=== PATIENT | female | born 1990 | race Caucasian/White ===

== ENCOUNTER 2023-04-08 12:58 | Outpatient (CLI) | payer MEDICAID, SELFPAY ==
--- NOTE | 2023-04-08 12:45 | RT.EKG_ITS ---
APPROVED REPORT Exam: Resting ECG Reason for Exam: pericardial effusion Patient Location: O HR:69 bpm ECG Measurements Heart Rate 69 AXIS MN 107 P 20 QRSd 80 QRS 28 QT 368 T 7 QTc 395 Conclusion Sinus rhythm...normal P axis, V-rate 50- 99 Short MN interval...MN <110mS Borderline T abnormalities, anterior leads...T flat or neg, V2-V4 Baseline wander in lead(s) V1,V2 I have reviewed and interpreted ECG and agree with software generated interpretation.
== END 2023-04-08 12:59 | disposition home or self-care (01) ==
LOC: DI.CARD 12:59
PROVIDERS: Visit Provider Internal Medicine Interventional Cardiology
DX: I31.39 Other pericardial effusion (noninflammatory) (principal)
CPT/HCPCS: 93010

== ENCOUNTER → 2023-05-06 00:55 | Outpatient (CLI) | payer MEDICAID, SELFPAY ==
--- NOTE | 2023-05-06 12:30 | DI.US_ITS ---
APPROVED REPORT EXAM: Comprehensive 2D, Doppler, and color-flow Echocardiogram Patient Location: Out-Patient Director Of Surgery: Edgar Patiño RDCS ([facility]) Indications: Pericardial effusion, CHF Conclusion Normal chamber sizes Normal LV function, EF 60-65%. Normal RV function. Anatomically normal valves. Mild TR, no phtn Trace pericardial effusion, within normal limits. Wall motion Left Ventricle The left ventricle is normal size. The left ventricular systolic function is normal. The left ventric ular ejection fraction is within the normal range. There is normal left ventricular wall thickness. T here is normal LV segmental wall motion. There is no ventricular septal defect visualized. LVEF is 60 %. Right Ventricle The right ventricle is normal size. The right ventricular systolic function is normal. Atria The left atrium size is normal. The right atrium size is normal. The interatrial septum is intact wit h no evidence for an atrial septal defect. Aortic Valve The aortic valve is normal in structure. Aortic valve is trileaflet. There is no aortic valvular sten osis. No aortic regurgitation is present. Mitral Valve The mitral valve is normal in structure. No evidence of mitral valve stenosis. Mild mitral regurgitat ion. Tricuspid Valve The tricuspid valve is normal in structure. There is no tricuspid valve stenosis. Trace to mild tricu spid regurgitation. Unable to assess PA pressure. Pulmonic Valve The pulmonary valve is normal in structure. There is no pulmonic valvular stenosis. Great Vessels The aortic root is normal in size. Ascending aorta is not well visualized. IVC is normal in size and collapses >50% with inspiration. Pericardium There is no pericardial effusion. 2D Dimensions IVSD d PLAX 0.52 cm F: 0.6-1.0 Ao Root d 2.68 cm F: 2.7 - 3.3 LVPW d PLAX 0.53 cm F: 0.6 - 1.0 LVID d PLAX 4.91 cm F: 3.8 - 5.2 LVDs 3.35 cm F: 2.2 - 3.5 LV EF Teichholz 59.7 % FS 31.83 % LV EDV (Teich) 113.6 mL LV ESV (Teich) 45.8 mL Stroke Vol Index (Teich) 46.15 M-Mode TAPSE 2.01 cm (M/F) >1.7 Auto EF LV EDV A4C 84.2 mL LV EDV A2C 94.0 mL LV EDV BP 89.6 mL LV ESV A4C 34.2 mL LV ESV A2C 36.3 mL LV ESV BP 35.3 mL LVEF(%) A4C 59.3 % LVEF(%) A2C 61.4 % LVEF(%) BP 60.6 % LV SV A4C 49.9 ml LV SV A2C 57.7 ml LV SV BP 54.2 ml LV CO A4C 2.9 L/min LV CO A2C 3.4 L/min LV CO BP 3.2 L/min HR A4C 58.07 BPM HR A2C 59.70 BPM LV EDV Index (BP) LA Volume LA Length A4C 2.8 cm LA Length A2C 4.1 cm LA Area A4C s 5.21 cm2 LA Area A2C s 9.83 cm2 LA Vol A4C A-L 8.27 mL LA Vol A2C A-L 19.88 mL LA Vol Biplane A-L 15.6 mL LA Vol/BSA A4C A-L LA Vol/BSA A2C A-L LA Vol/BSA BP A-L 10.6 mL/m2 LA Vol A4C MOD 8.0 mL LA Vol A2C MOD 17.5 mL LA Vol BP MOD 14.0 mL RA Volume RA Area A4C 6.2 cm2 RA ESV A4C (A-L) 9.1mL RA Vol/BSA A4C A-L RA Length A4C 3.5 cm RA ESV A4C (MOD) 8.4mL LV Diastology MV E' medial 0.080 (>0.07 m/s) MV E Vmax 0.84 (0.4-1.3 m/s) MV E/E' MED 10.50 (<14) MV A Vmax 0.80 (0.4-1.3 m/s) MV E' lateral 0.166 (>0.1 m/s) E/A Ratio 1.0 MV E/E' LAT 5.07 (<14) MV E' Average 0.123 m/s MV E/E'(average) 6.84 Aortic Valve AoV Vmax 1.37 m/s LVOT Vmax 0.88 m/s AoV Peak Grad 7.5 mmHg LVOT Peak Grad 3.1 mmHg AoV Area (Vmax) 1.83 cm2 LVOT VTI 0.198 m AoV VTI 0.313 m LVOT Mean Grad 1.8 mmHg AoV Mean Herb. 0.96 m/s LVOT SV 56.43 mL AoV Mean Grad 4.2 mmHg LVOT Diam s 1.90 cm AoV Area (VTI) 1.80 cm2 Velocity Ratio 0.64 Mitral Valve MV DT 195 (160-240 msec) Pulmonary Valve PV Vmax 0.74 (0.5-1.5 m/s) RVOT Vmax 0.59 m/s PV Peak Grad 2.2 mmHg RVOT Peak Gr. 1.4 mmHg PV Mean Herb 0.52 m/s RVOT VTI 0.145 m PV Mean Grad 1.2 mmHg RVOT Mean Gr. 0.8 mmHg
== END ==
PROVIDERS: Visit Provider Internal Medicine Interventional Cardiology
DX: I50.9 Heart failure, unspecified (principal)
CPT/HCPCS: 93306

== ENCOUNTER 2024-02-02 18:20 | Emergency (ER) | payer OTHER, SELFPAY ==
[2024-02-02 18:21] VITALS: BP 165/102; PULSE 118; RESP 18; TEMP 36.3; O2SAT 99
[2024-02-02] MEDS: Ondansetron O.D.T. 4 MG TABEF PO (18:40)
[2024-02-02] MEDS: Dexamethasone 10 MG/ML VIAL IVP (19:00)
[2024-02-02] MEDS: ACETAMINOPHEN 1,000 MG/100 ML BAG 400 MG IVPB (19:18)
[2024-02-02] MEDS: Prochlorperazine 10 MG/2 ML VIAL IVP (19:20)
[2024-02-02] MEDS: Normal Saline 500 ML IV (19:21)
[2024-02-02 19:32] LABS: Abs Immature Grans 0.01 10^3/uL (0.0-0.06); Absolute Basophil Count 0.03 10^3/uL (0.0-0.2); Absolute Eosinophil Count 0.06 10^3/uL (0.0-0.7); Absolute Lymphocyte Count 1.89 10^3/uL (1.2-3.4); Absolute Monocyte Count 0.38 10^3/uL (0.1-0.8); Absolute Neutrophil Count 3.56 10^3/uL (1.2-6.7); Basophils % 0.5 %; HCT 43.4 % (36.0-46.0); HGB 14.5 g/dL (11.2-15.7); Immature Grans % 0.2 %; Lymphocytes % 31.9 %; MCH 31.2 pg (27.0-33.0); MCHC 33.4 % (32.0-36.0); MCV 93 fL (80-95); Monocytes % 6.4 %; Platelet Count 125 10^3/uL (130-400); RBC 4.65 10^6/uL (3.93-5.22); RDW 12.5 % (11.7-14.6); WBC 5.93 10^3/uL (4.4-10.8)
--- NOTE | 2024-02-02 19:35 | DI.CT_ITS ---
Exam(s) CT HEAD WO EXAM: CT HEAD WO CLINICAL HISTORY: terrible headache. TECHNIQUE: Imaging Protocol: Axial computed tomography images with coronal and sagittal reformatted images were created and reviewed COMPARISON: No exams were available for comparison FINDINGS: There are no skull fractures. There is no fluid in the visualized paranasal sinuses. There is no evidence of intracranial hemorrhage, mass effect, or shift of midline structures. There are no extra-axial fluid collections. The ventricles are not enlarged or shifted and there is no blo od within the ventricular system nor within the basal cisterns. IMPRESSION: No acute intracranial findings on this noninfused CT scan of the brain. Called by myself to ER provider 02/02/2024 at 7:38 p.m. RADIATION DOSE DELIVERED: 851.43mGy.cm Total DLP DATA REPOSITORY: All CT scans at this facility are submitted to the National Radiology Data Registry (NRDR) Dose Index Registry (DIR) with the [employer] (ACR). RADIATION OPTIMIZATION: All CT scans at this facility use at least one of these dose optimization te chniques: automated exposure control; mA and/or kV adjustment per patient size (includes targeted exa ms where dose is matched to clinical indication); or iterative reconstruction.
[2024-02-02 19:37] VITALS: BP 134/84; PULSE 58; RESP 14; TEMP 36.9; O2SAT 100
[2024-02-02 19:43] LABS: ALT 26 U/L (14-59); AST 12 U/L (15-37); Albumin 3.9 g/dL (3.4-5.0); Alkaline Phosphatase 42 U/L (46-116); Anion Gap 10.9 mmol/L (3-11); BUN 10 mg/dL (7-18); Bilirubin, Total 0.49 mg/dL (0.2-1.0); CO2 27.1 mmol/L (21.0-32.0); Calcium 9.3 mg/dL (8.5-10.1); Chloride 105 mmol/L (98-107); Estimated GFR 77.24 (mL/min/1.73m2); Glucose 94 mg/dL (74-106); Potassium 3.6 mmol/L (3.5-5.1); Sodium 143 mmol/L (136-145)
[2024-02-02] MEDS: Ketorolac 15 MG/ML VIAL 7.5 MG IVP (19:43)
[2024-02-02] MEDS: Ondansetron O.D.T. 4 MG TABEF, 3 TABS/BTL PO (20:31)
[2024-02-02] MEDS: Prochlorperazine 10 MG TAB PO (20:31)
[2024-02-02 20:32] VITALS: BP 111/65; PULSE 68; RESP 16; TEMP 36.9; O2SAT 100
--- NOTE | 2024-02-02 21:58 | W.ED.GENAD ---
Discharge Plan Disposition Patient Disposition: Home Discharge Details Clinical Impression: Headache Primary Care Provider: Jun Carrillo ED Provider: Lisseth Burton Home Meds and New Rx's Prescriptions: New ondansetron 4 mg tablet,disintegrating 4 mg PO TID PRNQty: 10 0RF prochlorperazine maleate [Compazine] 10 mg tablet 10 mg PO Q6H PRNQty: 10 0RF Continued Nurtec ODT 75 mg tablet,disintegrating 75 mg PO ONCE PRN (Reason: migraine headache) Qty: 10 6RF Patient Comments: Insurance has not authorized yet. Rx Instructions: as a single dose norethindrone ac-eth estradiol 1.5-30 mg-mcg tablet 1 tab PO DAILY Qty: 63 5RF sumatriptan succinate [Imitrex] 25 mg tablet See Rx Instructions .ROUTE .COMPLEX Rx Instructions: take 1 tab at onset of headache; if no relief may repeat 1 tab after at least 2 hrs; max = 4 tabs/24 hr ibuprofen [IBU] 800 mg tablet 800 mg PO Q8H acetaminophen [Tylenol Extra Strength] 500 mg tablet 1,000 mg PO Q6H PRN Discharge Instructions Instructions: Headache, Adult ED Additional Instructions: Follow-up with neurology, and giving you a referral, I am giving you a prescription for Compazine which you may take as needed for headache, and the Zofran may help with nausea and vomiting, Compazine tends to help more with headaches, so you may use the Zofran for persistent nausea despite taking the Compazine Take ibuprofen and Tylenol as needed for discomfort please return earlier should you have new, worsening, or persistent symptoms Referrals: Jun Carrillo DO [Primary Care Provider] - Tiffanie Rizo MD [ [facility] STAFF PHYSICIAN] - 1 day HPI General Date/Time Provider Initiated Documentation: 02/02/24 18:33. HPI Narrative: This 33-year-old female with history of migraine headaches presents with report of atypical headache that started at 12 pm today. pt states she took her sumatriptan, ibuprofen, and tylenol with persistent and worsening CASTRO. Denies thunderclap onset of pain. denies fever or stiff neck. denies chance of , chest pain, abdominal pain, shortness of breath. Reports phonophobia and photophobia. Denies carbon monoxide exposure. Related Data Home Medications ?Medication ?Instructions ?Recorded ?Confirmed norethindrone acetate 1.5 1 tab PO DAILY #63 tabs 04/08/23 02/02/24 mg-ethinyl estradiol 30 mcg tablet rimegepant 75 mg disintegrating 75 mg PO ONCE PRN migraine 01/20/24 02/02/24 tablet (Nurtec ODT) headache #10 tabs acetaminophen 500 mg tablet 1,000 mg PO Q6H PRN 02/02/24 02/02/24 (Tylenol Extra Strength) ibuprofen 800 mg tablet (IBU) 800 mg PO Q8H 02/02/24 02/02/24 ondansetron 4 mg disintegrating 4 mg PO TID PRN #10 tabs 02/02/24 tablet prochlorperazine maleate 10 mg 10 mg PO Q6H PRN #10 tabs 02/02/24 tablet (Compazine) sumatriptan succinate 25 mg tablet See Rx Instructions PO .COMPLEX 02/02/24 02/02/24 (Imitrex) Previous Rx's ?Medication ?Instructions ?Recorded norethindrone acetate 1.5 1 tab PO DAILY #63 tabs 04/08/23 mg-ethinyl estradiol 30 mcg tablet rimegepant 75 mg disintegrating 75 mg PO ONCE PRN migraine 01/20/24 tablet (Nurtec ODT) headache #10 tabs ondansetron 4 mg disintegrating 4 mg PO TID PRN #10 tabs 02/02/24 tablet prochlorperazine maleate 10 mg 10 mg PO Q6H PRN #10 tabs 02/02/24 tablet (Compazine) Allergies Allergy/AdvReac Type Severity Reaction Status Date / Time No Known Allergies Allergy Verified 02/02/24 18:26 General Stated Complaint: Headache ERASTO: 2 Exam Narrative Exam Narrative: 33-year-old female in no acute distress, pupils equal round reactive to light and accommodation, no meningismus, no visible signs of trauma, lungs clear to auscultation, sinus tachycardia, no abdominal tenderness, alert and oriented x 4, ambulatory steady gait, cranial nerves II through XII intact Course Vital Signs Vital signs: Vital Signs Temperature 36.3 C L 02/02/24 18:21 Pulse 118 H 02/02/24 18:21 Respiratory Rate 18 02/02/24 18:21 Blood Pressure 165/102 H 10/28/24 18:21 Pulse Oximetry 99 02/02/24 18:21 Temperature 36.9 C 02/02/24 20:32 Temperature Source Temporal Artery Scan 02/02/24 19:37 Pulse 68 02/02/24 20:32 Respiratory Rate 16 02/02/24 20:32 Respiratory Effort Normal 02/02/24 19:37 Blood Pressure 111/65 02/02/24 20:32 Blood Pressure Position Supine 02/02/24 19:37 Pulse Oximetry 100 02/02/24 20:32 Oxygen Delivery Method Nasal Cannula 02/02/24 19:37 Oxygen Flow Rate 2 02/02/24 19:37 Pain Level 0 02/02/24 20:32 Lab/Test Results Lab/Test Results: Laboratory Tests Range/Units 02/02/24 02/02/24 19:14 19:14 WBC (4.4-10.8) 10^3/uL 5.93 RBC (3.93-5.22) 10^6/uL 4.65 Hgb (11.2-15.7) g/dL 14.5 Hct (36.0-46.0) % 43.4 MCV (80-95) fL 93 MCH (27.0-33.0) pg 31.2 MCHC (32.0-36.0) % 33.4 RDW (11.7-14.6) % 12.5 Plt Count (130-400) 10^3/uL 125 L MPV (8.0-11.0) fL Immature Gran % % 0.2 Neutrophils % % 60.0 Lymphocytes % % 31.9 Monocytes % % 6.4 Eosinophils % % 1.0 Basophils % % 0.5 Nucleated RBC % (0.0-0.3) % 0.0 Absolute Neutrophils (1.2-6.7) 10^3/uL 3.56 Absolute Lymphocytes (1.2-3.4) 10^3/uL 1.89 Absolute Monocytes (0.1-0.8) 10^3/uL 0.38 Absolute Eosinophils (0.0-0.7) 10^3/uL 0.06 Absolute Basophils (0.0-0.2) 10^3/uL 0.03 Sodium (136-145) mmol/L 143 Potassium (3.5-5.1) mmol/L 3.6 Chloride (98-107) mmol/L 105 Carbon Dioxide (21.0-32.0) mmol/L 27.1 Anion Gap (3-11) mmol/L 10.9 BUN (7-18) mg/dL 10 Creatinine (0.55-1.02) mg/dL 1.0 Est GFR (CKD-EPI 2020) (mL/min/1.73m2) 77.24 Glucose (74-106) mg/dL 94 Calcium (8.5-10.1) mg/dL 9.3 Magnesium (1.8-2.4) mg/dL 2.0 Cancelled Total Bilirubin (0.2-1.0) mg/dL 0.49 AST (15-37) U/L 12 L ALT (14-59) U/L 26 Alkaline Phosphatase (46-116) U/L 42 L Total Protein (6.4-8.2) g/dL 8.0 Albumin (3.4-5.0) g/dL 3.9 POC Urine Test Start: 02/02/24 18:47 Freq: Status: Complete Protocol: Document 02/02/24 18:47 HOWARD (Rec: 02/02/24 18:47 HOWARD [id number]) Test(Urine)-POC POC- Test(urine) Negative POC- Test(urine) Negative Medical Decision Making 33-year-old female alert and oriented, presents in acute distress with nausea, photophobia, headache, phonophobia. As patient has not previously had a headache similar to this I did order a CT for further evaluation. Patient's diagnostic labs do not show evidence of acute abnormality aside from mild thrombocytopenia at 125. No active bleeding visualized. I discussed the results with Dr. Sheikh, radiologist he does not see any evidence of acute abnormality. Patient received Tylenol, Toradol, Decadron, and Compazine with complete resolution of headache. She was given Compazine and Zofran for home. I will place her on a list for neurology follow-up with Dr. Rizo. Return precautions reviewed and patient expressed understanding Quality:SDOH Health Related Social Needs: No Data to Display PFSH All Active Problems (Updated 02/02/24 @ 20:20 by YONI Gibbs) Headache (Acute) Torticollis (Acute) Migraine with aura (Acute) Pityriasis versicolor (Acute) Contraception, generic surveillance (Acute) 06/2023. Continue on current formulation. Medical History (Updated 02/02/24 @ 20:20 by YONI Gibbs) Single major depressive episode, moderate Pericardial effusion Tachycardia, unspecified with 2nd RH Thrombocytopenia Gestational HTN 03/18/23 first RH Gestational diabetes 03/18/23 first RH Family History (Updated 01/13/24 @ 10:46 by Julianna Murcia) Father Diabetes Hypertension Asthma Paternal Grandmother Diabetes Paternal Grandfather Diabetes Heart disease Mother Alcohol use disorder Uncle Alcohol use disorder Social History (Updated 01/13/24 @ 10:43 by Julianna Murcia) Smoking/Tobacco Use Status: Never Second Hand Exposure: Yes Smoking risk assessment performed?: Yes Alcohol Intake: current Alcohol Intake frequency: a few times a month Drug use: Never Substance use type: does not use Adopted: No Caregiver/Support person: No Foster care: No Household members: spouse, children and other Details: 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 Bobby Mejia . 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 Pets and animals: Yes (1) Pets and animals: dog(s) Sexually active: Yes Do you think of yourself as: straight/heterosexual Current gender identity: female What is your relationship status?: How often do you talk on the phone with friends or family?: three or more times per week How often do you get together with friends or relatives?: once per week Do you belong to any clubs or organized social groups?: no Panel score (0-1 are the most socially isolated patients): 2 What type of physical activity do you participate in: none Macrina/Presybeterian: None Special macrina needs: No Seatbelt use: always Helmet use: Yes Drive intox or ride w/intox local company truck driver: No Female Reproductive History Menstrual control method: none History History 2 Para 2 Hx # Term Pregnancies 2 Multiple births Hx # Pregnancies Ectopic pregnancies AB induced Hx Number of Living Children 2 AB spontaneous Past Pregnancies Del. Date GA/Weeks # Preg Succ Route Wgt Sex Labor Lgth [facility] 39 Yes vaginal 2976.7 g [place] 12/26/22 39 No Yes vaginal 3515.341 g [place] Delivery Date: 02/13/22 Last Updated by: MD Jason Castrejon. Gestational thrombocytopenia, GHTN Delivery Date: 12/26/22 Last Updated by: Lauren Cotto MD [place]. Gestational thrombocytopenia. Pericardial effusion, anemia.
[2024-02-04 10:38] LABS: Lyme Ab w Rflx to Lyme Confirm Negative (Negative)
[2024-02-06 00:57] LABS: Anaplasma phagocytophilum Negative (Negative); B. miyamotoi PCR Negative (Negative); Babesia divergens/MO-1 Negative (Negative); Babesia duncani Negative (Negative); Babesia microti Negative (Negative); Ehrlichia chaffeensis Negative (Negative); Ehrlichia ewingii/canis Negative (Negative); Ehrlichia muris eauclairensis Negative (Negative)
== END 2024-02-02 20:33 | disposition home or self-care (01) ==
PROVIDERS: Emergency Provider Physician Assistant; PCP Family Medicine
DX: R51.9 Headache, unspecified (principal)
CPT/HCPCS: 80053; 81025; 87798; 96365; 96375; 99284; 70450; 83735; 85025; 86618; J0131; J0780; J1100; J1885

== ENCOUNTER 2024-11-20 10:35 | Outpatient (REF) | payer OTHER, SELFPAY ==
[2024-11-20 11:25] LABS: HCT 40.8 % (36.0-46.0); HGB 13.5 g/dL (11.2-15.7); MCH 30.3 pg (27.0-33.0); MCHC 33.1 % (32.0-36.0); MCV 92 fL (80-95); Platelet Count 116 10^3/uL (130-400); RBC 4.46 10^6/uL (3.93-5.22); RDW 12.3 % (11.7-14.6); RDW-SD 41.1 fL; WBC 5.88 10^3/uL (4.4-10.8)
== END 2024-11-20 10:36 | disposition home or self-care (01) ==
LOC: LBN 10:35
PROVIDERS: PCP Family Medicine; Visit Provider Advanced Practice Midwife
DX: Z34.91 Encounter for supervision of normal pregnancy, unspecified, first trimester (principal)
CPT/HCPCS: 85027

== ENCOUNTER 2025-01-11 01:36 | Outpatient (CLI) | payer OTHER, SELFPAY ==
[2025-01-11 15:41] LABS: HCT 38.7 % (36.0-46.0); HGB 13.4 g/dL (11.2-15.7); MCH 31.6 pg (27.0-33.0); MCHC 34.6 % (32.0-36.0); MCV 91 fL (80-95); MPV 12.6 fL (8.0-11.0); Platelet Count 137 10^3/uL (130-400); RBC 4.24 10^6/uL (3.93-5.22); RDW 12.6 % (11.7-14.6); RDW-SD 41.6 fL; WBC 8.77 10^3/uL (4.4-10.8)
[2025-01-12 10:40] LABS: HIV-1/2 Ag & Ab Screen Negative (Negative)
[2025-01-12 10:51] LABS: Hepatitis C Ab w Rflx HCV PCR Negative (Negative)
[2025-01-12 11:07] LABS: Rubella IgG Ab (UVM) Positive (See Note)
[2025-01-14 19:42] LABS: Syphilis IgG w/Reflex Nonreactive (Nonreactive)
== END 2025-01-11 01:37 | disposition home or self-care (01) ==
LOC: LBO 01:36
PROVIDERS: Advanced Practice Midwife; PCP Family Medicine; Visit Provider Advanced Practice Midwife
DX: Z34.91 Encounter for supervision of normal pregnancy, unspecified, first trimester (principal)
CPT/HCPCS: 36415; 81220; 81222; 81329; 85027; 86787; 86803; 86850; 86900; 86901; 87340; 87389; 86762; 86780

== ENCOUNTER 2025-01-11 15:08 | Outpatient (REF) | payer OTHER, SELFPAY ==
--- NOTE | 2025-01-11 14:45 | PAPFT_PTH ---
PATIENT: Yaquelin Ewing LOC: [facility] U#:[id number] AGE/SX: 34/F ROOM: RE01/11/[address]: Susy Day : 1990 BED: DIS: 01/11/2025 SPEC #: [id number] RECD: 01/11/25 17:50 STATUS: JUNAA REArlette #: [id number] MICHAELA: 01/11/25 14:[address]: Susy Day DEPT: [facility] Cytology RECD BY: Lisseth Griffin ENTERED: 01/11/25 17:50 SP TYPE: PAPFT OTHR DR: Jun Carrillo DO Tissues: 1 - CX/ENDOCX FOR PAP SMEARS Procedures: PAP THIN PREP/UVM Screening HPV DNA PROBE Comments: [id number] (HPV 16 & 18/45) (CHLAMYDIA/GC)
[2025-01-12 12:42] LABS: Chlamydia Result Negative (Negative); GC Result Negative (Negative)
== END 2025-01-11 15:09 | disposition home or self-care (01) ==
LOC: LBN 15:08
PROVIDERS: PCP Family Medicine; Visit Provider Advanced Practice Midwife
DX: Z34.91 Encounter for supervision of normal pregnancy, unspecified, first trimester (principal); Z12.4 Encounter for screening for malignant neoplasm of cervix
CPT/HCPCS: 87491; 87591; 88142; 87086; 87624

== ENCOUNTER 2025-02-17 14:48 | Outpatient (CLI) | payer OTHER, SELFPAY ==
[2025-02-17 15:36] LABS: ALT 11 U/L (10-49); AST 15 U/L (<34); Albumin 4.2 g/dL (3.4-5.0); Alkaline Phosphatase 44 U/L (46-116); Anion Gap 11 mmol/L (3-11); BUN 7 mg/dL (9-23); Bilirubin, Total 0.40 mg/dL (0.2-1.2); CO2 23.0 mmol/L (20.0-31.0); Calcium 9.2 mg/dL (8.3-10.6); Chloride 105 mmol/L (98-107); Glucose 86 mg/dL (74-106); Potassium 3.4 mmol/L (3.5-5.1); Sodium 139 mmol/L (136-145); Total Protein 7.1 g/dL (5.7-8.2)
[2025-02-17 15:43] LABS: Hemoglobin A1C 4.8 % (<5.7)
[2025-02-17 16:46] LABS: Prot/Crea Ur Ratio 0.12 mg/mg Cr
== END 2025-02-17 14:49 | disposition home or self-care (01) ==
LOC: LBO 14:48
PROVIDERS: PCP Family Medicine; Visit Provider Obstetrics & Gynecology
DX: Z86.32 Personal history of gestational diabetes (principal); Z87.59 Personal history of other complications of pregnancy, childbirth and the puerperium
CPT/HCPCS: 36415; 80053; 82565; 83036; 84156

== ENCOUNTER → 2025-02-24 05:54 | Outpatient (CLI) | payer OTHER, SELFPAY ==
--- NOTE | 2025-02-24 06:45 | DI.US_ITS ---
APPROVED REPORT EXAM: Comprehensive 2D, Doppler, and color-flow Echocardiogram Patient Location: Out-Patient Barber Instructor: Beatris Cosby RDCS ([facility]) Indications: H/O moderate pericardial effusion, 19 weeks gestation Other Information Study Quality: Good Conclusion Normal left ventricular wall thickness and chamber size. Ejection fraction is 60 to 65%. Wall motion is normal Normal right ventricular size and function Both atria are normal in size There is no structural or hemodynamically significant valvular disease There is no pericardial effusion Wall motion Left Ventricle The left ventricle is normal size. The left ventricular systolic function is normal. The left ventricular ejection fraction is within the normal range. There is normal left ventricular wall thickness. There is normal LV segmental wall motion. There is no ventricular septal defect visualized. LVEF is 60-65%. Right Ventricle The right ventricle is normal size. The right ventricular systolic function is normal. Atria The left atrium size is normal. The right atrium size is normal. The interatrial septum is intact with no evidence for an atrial septal defect. Aortic Valve The aortic valve is normal in structure. Aortic valve is trileaflet. There is no aortic valvular stenosis. No aortic regurgitation is present. Mitral Valve The mitral valve is normal in structure. No evidence of mitral valve stenosis. Trace mitral regurgitation. Tricuspid Valve The tricuspid valve is normal in structure. There is no tricuspid valve stenosis. Trace tricuspid regurgitation. Unable to assess PA pressure. Pulmonic Valve The pulmonary valve is normal in structure. There is no pulmonic valvular stenosis. There is no pulmonic valvular regurgitation. Great Vessels The aortic root is normal in size. Ascending aorta is not well visualized. Aortic arch is normal in caliber. IVC is normal in size and collapses >50% with inspiration. Pericardium There is no pericardial effusion. 2D Dimensions IVSD d PLAX 0.61 cm F: 0.6-1.0 Ao Root d 2.29 cm F: 2.7 - 3.3 LVPW d PLAX 0.60 cm F: 0.6 - 1.0 LVID d PLAX 4.60 cm F: 3.8 - 5.2 LVDs 3.11 cm F: 2.2 - 3.5 LV EF Teichholz 60.4 % FS 32.10 % LV EDV (Teich) 96.1 mL LV ESV (Teich) 38.1 mL M-Mode TAPSE 1.48 cm (M/F) >1.7 Auto EF LV EDV A4C 86.8 mL LV EDV A2C 105.3 mL LV EDV BP 97.8 mL LV ESV A4C 29.6 mL LV ESV A2C 42.1 mL LV ESV BP 35.5 mL LVEF(%) A4C 65.9 % LVEF(%) A2C 60.0 % LVEF(%) BP 63.7 % LV SV A4C 57.2 ml LV SV A2C 63.2 ml LV SV BP 62.3 ml LV CO A4C 4.8 L/min LV CO A2C 4.6 L/min LV CO BP 4.7 L/min HR A4C 84.71 BPM HR A2C 72.88 BPM LV EDV Index (BP) RV Strain Global Peak Long. Strain A4C 16.66 Global Peak Long. Strain A4C FW 17.38 LA Volume LA Length A4C 3.9 cm LA Length A2C 4.4 cm LA Area A4C s 9.30 cm2 LA Area A2C s 11.90 cm2 LA Vol A4C A-L 18.90 mL LA Vol A2C A-L 27.33 mL LA Vol Biplane A-L 24.2 mL LA Vol/BSA A4C A-L LA Vol/BSA A2C A-L LA Vol/BSA BP A-L 16.0 mL/m2 LA Vol A4C MOD 17.4 mL LA Vol A2C MOD 25.2 mL LA Vol BP MOD 22.0 mL RA Volume RA Area A4C 9.2 cm2 RA ESV A4C (A-L) 18.7mL RA Vol/BSA A4C A-L RA Length A4C 3.8 cm RA ESV A4C (MOD) 17.7mL LV Diastology MV E' medial 0.103 (>0.07 m/s) MV E Vmax 0.77 (0.4-1.3 m/s) MV E/E' MED 7.54 (<14) MV A Vmax 0.85 (0.4-1.3 m/s) MV E' lateral 0.177 (>0.1 m/s) E/A Ratio 0.9 MV E/E' LAT 4.37 (<14) MV E' Average 0.140 m/s MV E/E'(average) 5.53 Aortic Valve AoV Vmax 1.58 m/s LVOT Vmax 1.21 m/s AoV Peak Grad 10.0 mmHg LVOT Peak Grad 5.8 mmHg AoV Area (Vmax) 1.94 cm2 LVOT VTI 0.223 m AoV VTI 0.287 m LVOT Mean Grad 3.6 mmHg AoV Mean Herb. 1.06 m/s LVOT SV 56.69 mL AoV Mean Grad 5.2 mmHg LVOT Diam s 1.75 cm AoV Area (VTI) 1.97 cm2 AV Regurg Peak Gr. 10.05 mmHg Velocity Ratio 0.77 Mitral Valve MV DT 235 (160-240 msec) MV Vmax TIPS 0.83 m/s MV Mean Grad 1.6 (<2mmHg) MV VTI 0.225 m Pulmonary Valve PV Vmax 0.95 (0.5-1.5 m/s) RVOT Vmax 0.79 m/s PV Peak Grad 3.6 mmHg RVOT Peak Gr. 2.5 mmHg PV Mean Herb 0.71 m/s RVOT VTI 0.161 m PV Mean Grad 2.2 mmHg RVOT Mean Gr. 1.2 mmHg Tricuspid Valve RA Pressure 3.00 mmHg TV S' 0.08 m/s
== END ==
LOC: DI 05:54
PROVIDERS: PCP Family Medicine; Visit Provider Obstetrics & Gynecology
DX: I31.39 Other pericardial effusion (noninflammatory) (principal); D69.3 Immune thrombocytopenic purpura; Z3A.19 19 weeks gestation of pregnancy
CPT/HCPCS: 93306

== ENCOUNTER 2025-03-17 14:07 | Outpatient (CLI) | payer OTHER, SELFPAY ==
[2025-03-17 12:47] LABS: Abs Immature Grans 0.04 10^3/uL (0.0-0.06); HCT 33.7 % (36.0-46.0); HGB 11.4 g/dL (11.2-15.7); Immature Grans % 0.5 %; MCH 31.3 pg (27.0-33.0); MCHC 33.8 % (32.0-36.0); MCV 93 fL (80-95); MPV 12.4 fL (8.0-11.0); Platelet Count 107 10^3/uL (130-400); RBC 3.64 10^6/uL (3.93-5.22); RDW 13.1 % (11.7-14.6); RDW-SD 44.5 fL; WBC 7.76 10^3/uL (4.4-10.8)
[2025-03-17 13:16] LABS: ALT 10 U/L (10-49); AST 14 U/L (<34); Albumin 3.7 g/dL (3.2-5.0); Alkaline Phosphatase 52 U/L (46-116); Anion Gap 7.5 mmol/L (3-11); BUN 5 mg/dL (9-23); Bilirubin, Total 0.4 mg/dL (0.2-1.2); CO2 23.5 mmol/L (20.0-31.0); Calcium 9.2 mg/dL (8.3-10.6); Chloride 106 mmol/L (98-107); Glucose 104 mg/dL (74-106); Potassium 3.7 mmol/L (3.5-5.1); Sodium 137 mmol/L (136-145); Total Protein 6.4 g/dL (5.7-8.2)
== END 2025-03-17 14:08 | disposition home or self-care (01) ==
LOC: LBO 14:07
PROVIDERS: PCP Family Medicine; Visit Provider Student in an Organized Health Care Education/Training Program
DX: O99.112 Other diseases of the blood and blood-forming organs and certain disorders involving the immune mechanism complicating pregnancy, second trimester (principal); D69.3 Immune thrombocytopenic purpura; Z3A.20 20 weeks gestation of pregnancy
CPT/HCPCS: 36415; 80053; 85025